=== PATIENT | male | born 1955 | race Caucasian/White ===

== ENCOUNTER → 2019-09-24 | Day surgery (SDC) | payer BC ==
[2019-09-21 11:17] VITALS: BMI 28.8
[~2019-09-24] MED LIST: Bupivacaine 0.25% HCL 30 ML VIAL ONE; Dexamethasone 20 MG/5 ML VIAL ONE; Fentanyl 100 MCG/2 ML VIAL ONE; HYDROmorphone 0.5 MG/0.5 ML SYRINGE ONE; Lidocaine 1% PF 5 ML VIAL ONE; Lidocaine 2% Jelly 5 ML TUBE ONE; Midazolam HCl 2 mg/2 ml Vial ONE; Ondansetron PF 4 MG/2 ML Vial ONE; PROPOFOL 200 MG/20 ML VIAL ONE; ePHEDrine/0.9% NaCl/PF SYRINGE 50 mg/10 ml ONE
[2019-09-24 06:57] LABS: #Basophils 0.1 thou/uL (0.0-0.2); #Eosinphils 0.1 thou/uL (0.0-0.7); #Lymphocytes 1.2 thou/uL (1.20-3.40); #Monocytes 0.8 thou/uL (0.11-0.59); #Neutrophils 3.7 thou/uL (1.40-6.50); %Eosinophils 1.9 % (0.0-10.0); %Lymphocytes 20.3 % (21.0-51.0); %Monocytes 13.2 % (0.0-10.0); %Neutrophils 63.5 % (42.0-75.0); Hemoglobin 14.8 g/dL (14.0-18.0); Mean Corpuscular HGB CONC 34.3 g/dL (32.0-36.0); Mean Corpuscular Hemoglobin 32.1 pg (27.0-31.0); Mean Corpuscular Volume 93.6 fL (78.0-98.0); Mean Platelet Volume 6.6 fL (7.4-10.4); Platelet Count 245 thou/uL (130-400); RBC Distribution Width 11.3 % (11.5-14.5); Red Blood Cell (RBC) Count 4.62 mill/uL (4.70-6.10); White Blood Cell (WBC) Count 5.8 thou/uL (4.8-10.8)
[2019-09-24 07:11] LABS: INR-International Normal Ratio 0.9; Prothrombin Time 12.4 SEC (12.0-14.7)
[2019-09-24 07:12] LABS: Anion Gap 12 mmol/L (10-20); BUN (Urea Nitrogen) 20 mg/dL (8.4-25.7); Calc. Creatinine Clearance 125 mL/min (70-130); Calcium 9.2 mg/dL (7.8-10.44); Carbon Dioxide 28 mmol/L (23-31); Chloride 101 mmol/L (98-107); Estimated GFR-MDRD 90; Glucose 100 mg/dL (80-115); PTT 33.1 SEC (22.9-36.1); Potassium 3.5 mmol/L (3.5-5.1); Sodium 137 mmol/L (136-145)
--- NOTE | 2019-09-24 09:36 | OP ---
DATE OF PROCEDURE: 09/24/2019 PREOPERATIVE DIAGNOSIS: Right hydrocele. Right hydrocelectomy. ANESTHETIC: General with local. ESTIMATED BLOOD LOSS: Less than 50. DRAINS PLACED: A 1 inch [place] drain. FINDINGS: Large right hydrocele and attenuated epididymis has been pulled out into the hydrocele sac, testicle otherwise appeared normal. DESCRIPTION OF PROCEDURE: After obtaining written and verbal consent from the patient, after receiving some IV antibiotics, he was taken to the operating suite. He was placed in a supine position on the treatment table. PlexiPulses were placed on his lower extremities and turned on. He was given a general anesthetic and oral obturator intubation. His scrotum was shaved and then sterilely prepped and draped. An incision was made along the median raphae in the dependent portion of the scrotum and taken into the right hemiscrotum and down onto the right hydrocele sac which was dissected out with the testicle in it from the scrotal incision. We removed as many of these layers as we could, leaving him with not a very thick hydrocele layer. The epididymis had pulled out into the hydrocele sac and this was noted visibly. We then opened up the sac on the region opposite to the testicle and drained a large amount of the fluid. We then went ahead and removed the sac leaving a rim of it around the testicle and epididymis being careful not to injure the attenuated epididymis. We then went ahead and oversewed this with a running 4-0 Vicryl stitch. We then irrigated out the incision and the specimen, obtained hemostasis with the electrocautery unit. The testicle was placed back into its normal position in the right scrotum. We did place 20 mL of 0.25% Marcaine into the scrotum and a 1 inch [place] drain was also placed. We closed the skin in two layers, first layer 2-0 chromic [id number] and the second layer 3-0 chromic U-stitches. We also infiltrated the skin incision itself with 20 mL of 0.25% Marcaine without epinephrine. Fluffs and wet panties were placed. The patient was awakened, extubated, and taken by stretcher to the recovery room. Sponge and needle counts were correct x2. Job ID: [id number]
--- NOTE | 2019-09-25 14:06 | EKG ---
Test Reason : PREOP Blood Pressure : / mmHG Vent. Rate : 069 BPM Atrial Rate : 069 BPM P-R Int : 172 ms QRS Dur : 098 ms QT Int : 416 ms P-R-T Axes : 017 -43 043 degrees QTc Int : 445 ms Normal sinus rhythm Left axis deviation Possible Inferior infarct , age undetermined Abnormal ECG When compared with ECG of 14-DEC-2009 14:58, No significant change was found Confirmed by ANN MARIE COLLINS, . SFabiola (4) on 09/25/2019 2:06:39 PM Referred By: TUAN Confirmed By:DR. Ariadna JESUS MD
== END ==
LOC: SDC 05:59
PROVIDERS: ATTEND Urology
PROC: 0VB60ZZ Excision of Right Tunica Vaginalis, Open Approach (ICD-10-PCS; principal; 2019-09-24)
DX: N43.3 Hydrocele, unspecified (principal); I10 Essential (primary) hypertension; E78.5 Hyperlipidemia, unspecified; Z79.82 Long term (current) use of aspirin; Z79.899 Other long term (current) drug therapy
CPT/HCPCS: 80048; 85025; 85610; 85730; 88302; 93005; 93010; J0690; J1100; J1170; J2001; J2250; J2405; J2704; J3010; S0020

== ENCOUNTER 2019-10-02 11:36 | Inpatient (IN) | payer BC ==
[2019-10-02] MEDS ORDERED: Morphine 4 MG/ML VIAL ONE ×2 (12:32→13:36)
[2019-10-02] MEDS ORDERED: Ondansetron PF 4 MG/2 ML Vial ONE (12:32)
[2019-10-02] MEDS ORDERED: cefTRIAXone\\ROCEPHIN 2 GM VIAL ONE ×2 (12:33→12:40)
[2019-10-02 12:34] LABS: #Lymphocytes 0.6 thou/uL (1.20-3.40); #Monocytes 1.7 thou/uL (0.11-0.59); #Neutrophils 9.9 thou/uL (1.40-6.50); %Basophils 0.2 % (0.0-1.0); %Eosinophils 0.2 % (0.0-10.0); %Lymphocytes 5.1 % (21.0-51.0); %Monocytes 14.1 % (0.0-10.0); %Neutrophils 80.5 % (42.0-75.0); Hemoglobin 11.8 g/dL (14.0-18.0); Mean Corpuscular HGB CONC 35.1 g/dL (32.0-36.0); Mean Corpuscular Hemoglobin 32.2 pg (27.0-31.0); Mean Corpuscular Volume 91.8 fL (78.0-98.0); Mean Platelet Volume 6.9 fL (7.4-10.4); Platelet Count 410 thou/uL (130-400); RBC Distribution Width 11.2 % (11.5-14.5); Red Blood Cell (RBC) Count 3.68 mill/uL (4.70-6.10); White Blood Cell (WBC) Count 12.4 thou/uL (4.8-10.8)
[2019-10-02 12:40] LABS: INR-International Normal Ratio 1.1; PTT 37.4 SEC (22.9-36.1); Prothrombin Time 13.7 SEC (12.0-14.7)
[2019-10-02] MEDS ORDERED: Vancomycin 1.5 GRAM/300 ML BAG 1.5 GM in Premix Bag 1 BAG IVPB SCH (12:45)
[2019-10-02 13:05] LABS: Anion Gap 14 mmol/L (10-20); Calc. Creatinine Clearance 0 mL/min (70-130); Calcium 9.4 mg/dL (7.8-10.44); Carbon Dioxide 25 mmol/L (23-31); Chloride 92 mmol/L (98-107); Estimated GFR-MDRD Greater than 90; Potassium 3.4 mmol/L (3.5-5.1); Sodium 128 mmol/L (136-145)
[2019-10-02 13:09] LABS: BUN (Urea Nitrogen) 12 mg/dL (8.4-25.7); Glucose 112 mg/dL (80-115)
[2019-10-02] MEDS ORDERED: Acetaminophen 325 MG TAB PO PRN (14:00)
[2019-10-02] MEDS ORDERED: Bisacodyl 10 MG SUPP PR PRN (14:00)
[2019-10-02] MEDS ORDERED: Senokot S 8.6-50 MG TAB PO PRN (14:00)
[2019-10-02] MEDS ORDERED: Guaifenesin DM 100-10/5 ML UDCUP PO PRN (14:00)
[2019-10-02] MEDS ORDERED: Ondansetron PF 4 MG/2 ML Vial IVP PRN (14:00)
--- NOTE | 2019-10-02 14:43 | HP ---
PRIMARY CARE PHYSICIAN: Dr. Max. REASON FOR ADMISSION: Scrotal abscess, sepsis. HISTORY OF PRESENTING ILLNESS: The patient gives history of having a large hydrocele, which he got operated on . Post this procedure, the patient has had progressive buildup of fluid. The patient also had a fever of 101.9 degrees. He went to see Dr. Leyva again this morning and has had another incision and drainage done there. He was asked to come get hospitalized in view of fever and possible infected scrotal sac. No complaints of chest pain, palpitation, PND, or orthopnea. No complaints of constipation at present. PAST MEDICAL AND SURGICAL HISTORY: History of cardiomyopathy, hypertension, history of a heart murmur, follows up with Dr. Vásquez. He has had a stress test done three months back and was told that he will be treated medically. He does not know the exact results of the test. He has had a cardiac catheterization done more than 18 years back, which was apparently normal as far as he knows, no cardiac stents in the past. Cholecystectomy; right hernia repair with a mesh, done 6 years back at [facility] by Dr. Aragon. Right leg and knee surgery with placement of plates, he has had right wrist surgery with placement of plates and screws, left elbow surgery with plates and screws, carpal tunnel surgery. CURRENT MEDICATIONS: The patient is on; 1. Aspirin 81 mg p.o. daily. 2. Nexium 40 mg p.o. daily. 3. Fluticasone nasal spray daily. 4. Lisinopril with hydrochlorothiazide 20/12.5 mg p.o. daily. 5. Toprol-XL 25 mg p.o. daily. 6. Viagra p.r.n. 7. Simvastatin 20 mg p.o. q.p.m. 8. Restoril 15 mg p.o. at bedtime p.r.n. for insomnia. ALLERGIES: NO KNOWN DRUG ALLERGIES. PERSONAL HISTORY: Does not abuse alcohol or drugs. No history of smoking. Lives with his . FAMILY HISTORY: Both parents are living. Mother is 85 and has history of coronary artery disease. Father is living and is 91 years old, he has multiple medical issues including coronary artery disease. CODE STATUS: Full. REVIEW OF SYSTEMS: CONSTITUTIONAL: Negative for weight loss or gain, ability to conduct usual activities. SKIN: Negative for rash, itching. EYES: Negative for double vision, pain. ENT/MOUTH: Negative for nose bleeding, neck stiffness, pain, tenderness. CARDIOVASCULAR: Negative for palpitations, dyspnea on exertion, orthopnea. RESPIRATORY: Negative for shortness of breath, wheezing, cough, hemoptysis, fever or night sweats. GASTROINTESTINAL: Negative for poor appetite, abdominal pain, heartburn, nausea , vomiting, constipation, or diarrhea. GENITOURINARY: Negative for urgency, frequency, dysuria, nocturia. MUSCULOSKELETAL: Negative for pain, swelling. NEUROLOGIC/PSYCHIATRIC: Negative for anxiety, depression. ALLERGY/IMMUNOLOGIC: Negative for skin rash, bleeding tendency. PHYSICAL EXAMINATION: GENERAL: The patient is a 63-year-old male, who is currently in mild distress from scrotal pain. VITAL SIGNS: Blood pressure 116/76, pulse 84 per minute, respiratory rate 16 per minute, temperature 99.9 degrees Fahrenheit, saturating 100% on room air. NECK: Supple. No elevated JVD. HEENT: Eyes; extraocular muscles are intact. Pupils are reacting to light. Oral cavity, mucous membranes are dry. No exudates or congestion. CARDIOVASCULAR SYSTEM: S1 and S2 heard, regular rhythm. RESPIRATORY SYSTEM: Air entry 1+ bilateral. No rales or rhonchi. ABDOMEN: Soft. Bowel sounds heard. No tenderness, rigidity, or guarding. The patient has ecchymosis in the suprapubic and scrotal area. His scrotum is enlarged and erythematous. He has had incision and drainage with complete packing done on the inferior part of the scrotal sac. Ecchymoses extends to the medial thigh on the right side. EXTREMITIES: No peripheral edema or calf tenderness. VASCULAR SYSTEM: Peripheral pulses 2+ bilateral. No ischemic ulcerations or gangrene. CENTRAL NERVOUS SYSTEM: No gross focal deficits noted. The patient is alert, awake, oriented well. PSYCHIATRIC SYSTEM: The patient's mood is euthymic. No hallucinations or delusions. LABORATORY DATA: White count of 12, hemoglobin and hematocrit are 11 and 33, platelet count 410, MCV is 91 with 80% neutrophils. PT/INR within normal limits. PTT 37. Sodium 128, potassium 3.4, serum chloride 92, bicarb is 25, BUN 12, creatinine 0.7, lactic acid 1.0, and serum glucose 112. CLINICAL IMPRESSION AND PLAN: The patient will be admitted to Med/Surg floor for suspected scrotal abscess with recent surgery for hydrocele on the . Dr. Leyva, his urologist will be consulted. Blood cultures have been obtained in the ER. We will also obtain a urine culture. He will be on cefepime and vancomycin. Normal saline at 60 mL/hour for a total of 2 bags. We will obtain a metabolic panel in the morning and see the trend of his sodium. We will continue aspirin, Nexium, lisinopril with hydrochlorothiazide, Toprol-XL, simvastatin, and temazepam as before. Morphine and [place] p.r.n. for pain. We will continue to closely monitor him on Med/Surg floor. Wound Care consultation will be requested as well. The patient says Dr. Leyva is planning to put his wound in a wound VAC. Job ID: [id number] [facility]
[2019-10-02] MEDS ORDERED: Cefepime 1 GM in Sodium Chloride 0.9% 100 ML IVPB SCH (15:00)
--- NOTE | 2019-10-02 16:14 | CON ---
DATE OF CONSULTATION: 10/02/2019 HISTORY OF PRESENT ILLNESS: This is a 63-year-old white male, who on the September 24, underwent a right scrotal hydrocelectomy. He came to see me in my office today. He said he came in to get the drain removed. Still having a lot of pain. He said he is still having some drainage, had a fever yesterday. Examining him, he has a large right-sided hematoma. There is no cellulitis. There is quite a bit of tenderness. There is a lot of ecchymosis of the scrotal sac and extending subcutaneously up to both inguinal canals. I went ahead and released three of the sutures as he did have some odor present from the incision. Cultured drainage and then removed a large amount of clot. There was no abdiel pus noted, but as mentioned, cultures were done. It was both still a semisolid as well as liquified hematoma. Irrigated out with sterile water in my office and then, damp to dry dressing change placed. We tried to get him directly admitted to the hospital, there were no beds. So, we sent him through the ER and I saw him again in the ER. The hematoma was not reaccumulated. His hemoglobin is over 11. His white count was mildly elevated at 12. He appears to not at this point, be toxic. His vital signs appear to be stable. He is still having a great deal of discomfort and has received some IV morphine for it. He is being started on some vancomycin and Rocephin. It appears that the emergency room nurses have picked up his wound culture that I had sent with him and his from my office and that has been set up. PAST MEDICAL HISTORY: His medical history includes some hypertension. He has had a prior hydrocelectomy on the opposite side. PHYSICAL EXAMINATION: ABDOMEN: Soft and nontender. There is ecchymosis as mentioned. The scrotum is much less swollen after removing the hematoma. There is some drainage of some thin bloody fluid from it onto his diaper. EXTREMITIES: His calves are nontender. IMPRESSION: 1. Right-sided scrotal hematoma. 2. Possibly infected hematoma. PLAN: Plan at this point is for admission, IV antibiotics, he can eat and drink. Pain control and we will get Wound Care to see him hopefully for a wound VAC. This has been fully discussed with him and his . Job ID: [id number]
[2019-10-02] MEDS: Morphine 2 MG/ML SYRINGE SLOW IVP PRN ×2 (17:33→21:33)
[2019-10-02] MEDS: Sodium Chloride 0.9% 1,000 ML IV SCH (17:36)
[2019-10-02 17:56] VITALS: BMI 27.1
[2019-10-02] MEDS: HYDROcodone/Acetaminophen 5/325 mg Tablet PO PRN (18:29)
[2019-10-02] MEDS: Atorvastatin Calcium 10 MG TAB PO SCH (21:35)
[2019-10-02] MEDS: Cefepime 1 GM in Sodium Chloride 0.9% 100 ML IVPB SCH (21:35)
[2019-10-02] MEDS: Temazepam 15 MG CAP PO PRN (23:41)
[2019-10-03] MEDS: Vancomycin 1.5 GRAM/300 ML BAG 1.5 GM in Premix Bag 1 BAG IVPB SCH ×2 (02:31→13:20)
[2019-10-03] MEDS ORDERED: HYDROcodone/Acetaminophen 5/325 mg Tablet ONE (05:06)
[2019-10-03] MEDS ORDERED: Morphine 2 MG/ML SYRINGE ONE (07:05)
[2019-10-03] MEDS: Enoxaparin Sodium 40 MG/0.4 ML SYRINGE SC SCH (08:54)
[2019-10-03] MEDS ORDERED: FLU VACC QS2019-20(6MOS UP)/PF 60 MCG/0.5 ML SYRINGE IM ONE (09:00)
[2019-10-03] MEDS: Cefepime 1 GM in Sodium Chloride 0.9% 100 ML IVPB SCH ×2 (10:44→20:16)
[2019-10-03] MEDS: Lisinopril/Hydrochlorothiazide 20 mg/12.5 mg Tablet PO SCH (10:45)
[2019-10-03] MEDS: HYDROcodone/Acetaminophen 5/325 mg Tablet PO PRN ×2 (11:11→19:06)
[2019-10-03] MEDS: Sodium Chloride 0.9% 1,000 ML IV SCH (12:12)
[2019-10-03] MEDS: Aspirin 81 mg Enteric Coated Tablet PO SCH (12:57)
[2019-10-03] MEDS: Morphine 2 MG/ML SYRINGE SLOW IVP PRN ×2 (13:23→17:15)
[2019-10-03 13:41] LABS: Hemoglobin 9.3 g/dL (14.0-18.0); Mean Corpuscular Hemoglobin 32.2 pg (27.0-31.0); Mean Corpuscular Volume 94.8 fL (78.0-98.0); Mean Platelet Volume 6.6 fL (7.4-10.4); Platelet Count 337 thou/uL (130-400); RBC Distribution Width 11.3 % (11.5-14.5); Red Blood Cell (RBC) Count 2.89 mill/uL (4.70-6.10); White Blood Cell (WBC) Count 7.1 thou/uL (4.8-10.8)
[2019-10-03 13:57] LABS: Band 4 % (5-11); Eosinophils 1 % (0-10); Lymphocytes 7 % (21-51); MDiff Complete? YES; Monocytes 16 % (0-10); Neutrophil 70 % (42-75); Platelet Morphology Comment Appears Adequate; Polychromasia SLIGHT = 2-3 cells (100X) (0-2/hpf); Reactive Lymphocytes 2 % (0-10)
[2019-10-03 18:55] LABS: Anion Gap 10 mmol/L (10-20); BUN (Urea Nitrogen) 8 mg/dL (8.4-25.7); Calc. Creatinine Clearance 163 mL/min (70-130); Calcium 8.3 mg/dL (7.8-10.44); Carbon Dioxide 26 mmol/L (23-31); Chloride 99 mmol/L (98-107); Estimated GFR-MDRD Greater than 90; Glucose 88 mg/dL (80-115); Potassium 3.3 mmol/L (3.5-5.1); Sodium 132 mmol/L (136-145)
--- NOTE | 2019-10-03 20:10 | PDOC.HOSPP ---
- Subjective Subjective: Doing ok. Has had a little discomfort. Says he had a herniorraphy with Dr. Aragon 8 years ago. He had some slowly progressing swelling in the right groin area where he had the surgery. He relates that to the hydrocele. - Objective Vital Signs & Weight: Vital Signs (12 hours) Temp Pulse Resp BP BP Pulse Ox 10/03/19 20:04 99.0 F 67 19 141/81 H 96 10/03/19 15:57 98.1 F 104 H 17 133/65 98 10/03/19 10:45 75 135/76 Weight Admit Weight 211 lb 2 oz Weight 211 lb 2 oz I&O: 10/02/19 10/03/19 10/04/19 06:59 06:59 06:59 Intake Total 1730 Output Total 1700 Balance 30 Result Diagrams: 10/03/19 06:40 10/03/19 07:13 Additional Labs: Accuchecks 10/03/19 05:09 POC Glucose 112 H Hospitalist ROS - Medication Medications: Active Medications Generic Name Dose Route Start Last Admin Trade Name Freq PRN Reason Stop Dose Admin Hydrocodone Bitart/Acetaminophen 1 tab 10/02/19 14:00 10/03/19 19:06 [place] 5/325 PO 1 tab Q4H PRN Administration Moderate Pain (4-6) Aspirin 81 mg 10/03/19 09:00 10/03/19 12:57 Ecotrin PO Not Given DAILY SAAD Atorvastatin Calcium 10 mg 10/02/19 21:00 10/02/19 21:35 Lipitor PO 10 mg HS SAAD Administration Enoxaparin Sodium 40 mg 10/03/19 09:00 10/03/19 08:54 Lovenox SC 40 mg 0900 SAAD Administration Lisinopril/HCTZ 1 tab 10/03/19 09:00 10/03/19 10:45 Prinizide 20-12.5 PO 1 tab DAILY SAAD Administration Sodium Chloride 1,000 mls @ 60 mls/hr 10/02/19 14:00 10/03/19 12:12 Normal Saline 0.9% IV 10/03/19 23:19 1,000 mls .[id number] SAAD Administration Vancomycin HCl 1.5 gm/ Device 300 mls @ 200 mls/hr 10/03/19 02:00 10/03/19 13 :20 IVPB 300 mls 0200,1400 SAAD Administration Cefepime HCl 1 gm/ Sodium 100 mls @ 200 mls/hr 10/02/19 21:00 10/03/19 10:44 Chloride IVPB 100 mls 0900,2100 SAAD Administration Metoprolol Succinate 25 mg 10/03/19 09:00 10/03/19 08:54 Toprol Xl PO 25 mg DAILY SAAD Administration Morphine Sulfate 2 mg 10/02/19 14:00 10/03/19 17:15 Morphine SLOW IVP 2 mg Q4H PRN Administration Pain Pantoprazole Sodium 40 mg 10/03/19 09:00 10/03/19 08:45 Protonix PO 40 mg DAILY SAAD Administration Temazepam 15 mg 10/02/19 14:00 10/02/19 23:41 Restoril PO 15 mg HSPRN PRN Administration Insomnia - Exam General Appearance: NAD Heart: RRR, no murmur, no gallops, no rubs, normal peripheral pulses Respiratory: CTAB, no wheezes, no rales, no ronchi, normal chest expansion, no tachypnea, normal percussion Gastrointestinal: soft, non-tender, non-distended, normal bowel sounds, no palpable masses, no hepatomegaly, no splenomegaly, no bruit Extremities: no cyanosis, no clubbing, no edema Skin - other findings: Ecchym of scrotum, wound vac on scrotum. Ecchym of lower pelvis. Hosp A/P (1) Scrotal abscess Code(s): N49.2 - INFLAMMATORY DISORDERS OF SCROTUM Status: Acute (2) HTN (hypertension) Code(s): I10 - ESSENTIAL (PRIMARY) HYPERTENSION Status: Acute (3) HLD (hyperlipidemia) Code(s): E78.5 - HYPERLIPIDEMIA, UNSPECIFIED Status: Acute - Plan Post-op scrotal abscess drainage. Continue IV abx. Follow up cultures. Continue home meds.
[2019-10-03] MEDS: Atorvastatin Calcium 10 MG TAB PO SCH (20:16)
[2019-10-03] MEDS: Temazepam 15 MG CAP PO PRN (23:02)
[2019-10-04 01:31] LABS: Vancomycin, Trough 7.9 ug/mL
[2019-10-04] MEDS: Vancomycin 1.5 GRAM/300 ML BAG 1.5 GM in Premix Bag 1 BAG IVPB SCH (01:59)
[2019-10-04] MEDS: Morphine 2 MG/ML SYRINGE SLOW IVP PRN ×4 (02:02→15:22)
[2019-10-04] MEDS ORDERED: Potassium Chloride 20 MEQ TAB PO SCH (07:45)
[2019-10-04] MEDS: HYDROcodone/Acetaminophen 5/325 mg Tablet PO PRN ×3 (08:06→20:00)
[2019-10-04] MEDS: Enoxaparin Sodium 40 MG/0.4 ML SYRINGE SC SCH (08:07)
[2019-10-04] MEDS: Cefepime 1 GM in Sodium Chloride 0.9% 100 ML IVPB SCH (08:07)
[2019-10-04] MEDS: Aspirin 81 mg Enteric Coated Tablet PO SCH (08:08)
[2019-10-04] MEDS: Lisinopril/Hydrochlorothiazide 20 mg/12.5 mg Tablet PO SCH (09:07)
[2019-10-04] MEDS ORDERED: Vancomycin HCl 1.5 GM in Sodium Chloride 0.9% 250 ML 300 ML IVPB SCH (10:00)
--- NOTE | 2019-10-04 16:50 | PDOC.HOSPP ---
- Subjective Subjective: Feeling better except for a little pain. No other complaints. - Objective Vital Signs & Weight: Vital Signs (12 hours) Temp Pulse Resp BP BP Pulse Ox 10/04/19 09:07 68 161/86 H 10/04/19 08:00 98 10/04/19 07:47 99.4 F 68 18 161/86 H 97 Weight Admit Weight 211 lb 2 oz Weight 211 lb 2 oz I&O: 10/03/19 10/04/19 10/05/19 06:59 06:59 06:59 Intake Total 2690 Output Total 2875 Balance -185 Result Diagrams: 10/03/19 06:40 10/03/19 07:13 Hospitalist ROS - Medication Medications: Active Medications Generic Name Dose Route Start Last Admin Trade Name Freq PRN Reason Stop Dose Admin Hydrocodone Bitart/Acetaminophen 1 tab 10/02/19 14:00 10/04/19 15:17 [place] 5/325 PO 1 tab Q4H PRN Administration Moderate Pain (4-6) Aspirin 81 mg 10/03/19 09:00 10/04/19 08:08 Ecotrin PO Not Given DAILY SAAD Atorvastatin Calcium 10 mg 10/02/19 21:00 10/03/19 20:16 Lipitor PO 10 mg HS SAAD Administration Enoxaparin Sodium 40 mg 10/03/19 09:00 10/04/19 08:07 Lovenox SC 40 mg 0900 SAAD Administration Lisinopril/HCTZ 1 tab 10/03/19 09:00 10/04/19 09:07 Prinizide 20-12.5 PO 1 tab DAILY SAAD Administration Cefepime HCl 1 gm/ Sodium 100 mls @ 200 mls/hr 10/02/19 21:00 10/04/19 08:07 Chloride IVPB 100 mls 0900,2100 SAAD Administration Vancomycin HCl 1.5 gm/ Sodium 300 mls @ 200 mls/hr 10/04/19 10:00 10/04/19 10 :25 Chloride IVPB 300 mls 0200,1000,1800 SAAD Administration Metoprolol Succinate 25 mg 10/03/19 09:00 10/04/19 08:06 Toprol Xl PO 25 mg DAILY SAAD Administration Morphine Sulfate 2 mg 10/02/19 14:00 10/04/19 15:22 Morphine SLOW IVP 2 mg Q4H PRN Administration Pain Pantoprazole Sodium 40 mg 10/03/19 09:00 10/04/19 08:06 Protonix PO 40 mg DAILY SAAD Administration Sodium Chloride 10 ml 10/04/19 09:00 10/04/19 10:28 Flush - Normal Saline IVF 10 ml Q12HR SAAD Administration Temazepam 15 mg 10/02/19 14:00 10/03/19 23:02 Restoril PO 15 mg HSPRN PRN Administration Insomnia - Exam General Appearance: NAD, awake alert Heart: RRR, no gallops, no rubs, normal peripheral pulses, II/IV Respiratory: CTAB, no wheezes, no rales, no ronchi, normal chest expansion, no tachypnea, normal percussion Gastrointestinal: soft, non-tender, non-distended, normal bowel sounds, no palpable masses, no hepatomegaly, no splenomegaly, no bruit Extremities: no cyanosis, no clubbing, no edema Skin - other findings: Scrotal swelling slightly better. Persistent ecchymosis. Musculoskeletal: normal tone, normal strength, no muscle wasting Psychiatric: normal affect, normal behavior, A&O x 3 Hosp A/P (1) Scrotal abscess Code(s): N49.2 - INFLAMMATORY DISORDERS OF SCROTUM Status: Acute (2) HTN (hypertension) Code(s): I10 - ESSENTIAL (PRIMARY) HYPERTENSION Status: Acute (3) HLD (hyperlipidemia) Code(s): E78.5 - HYPERLIPIDEMIA, UNSPECIFIED Status: Acute (4) Cardiomyopathy Code(s): I42.9 - CARDIOMYOPATHY, UNSPECIFIED Status: Acute - Plan Had hydrocelectomy previously. Post-procedure hematoma with development of scrotal abscess. Post-op scrotal abscess drainage. Continue IV abx. Polymicrobial culture. E coli, Enterococcus and Klebsiella ID consult. Continue wound vac. Continue home meds. BP ok.
[2019-10-04] MEDS: Piperacillin/Tazobactam 3.375 GM in Sodium Chloride 0.9% 100 ML IVPB SCH (17:39)
--- NOTE | 2019-10-04 17:56 | PQF ---
AFUA SHEEHAN DAVID R MD [id number] CLINICAL DOCUMENTATION IMPROVEMENT CLARIFICATION FORM: ICD-10 Updated PLEASE DO AN ADDENDUM TO THE PROGRESS NOTE WITH ANY DOCUMENTATION UPDATES OR ADDITIONS AND CARRY THROUGH TO DC SUMMARY. THANK YOU. DATE: 10/04/19 ATTN: Suman Please exercise your independent, professional judgment in responding to the clarification form. 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 of Inappropriate Secretion of Antidiuretic Hormone) [ ] Other diagnosis [ ] Unable to determine In addition, please specify: Present on Admission (POA): [x ] Yes [ ] No [ ] Unable to determine CLINICAL INDICATORS - SIGNS / SYMPTOMS / LABS / RESULTS AND LOCATION IN EMR Na level --> 10/02 na 128; 10/03 na 132 per lab RISK FACTORS / RESULTS AND LOCATION IN EMR H&P 10/02 Jag: scrotal abscesses TREATMENTS / RESULTS AND LOCATION IN EMR IV fluids--> 10/02 ED: 1 liter NS bolus then NS at 60 10/02-10/03 per orders Daily electrolyte labs 10/02 labs (This form is maintained as a part of the permanent medical record) 2014 [employer], [employer]. All Rights Reserved Maribel Molina RN, BSN, CCDS [email or web address] [email or web address]
[2019-10-04] MEDS: Atorvastatin Calcium 10 MG TAB PO SCH (20:00)
[2019-10-04] MEDS: Temazepam 15 MG CAP PO PRN (22:36)
--- NOTE | 2019-10-04 23:57 | CON ---
DATE OF CONSULTATION: 10/04/2019 REASON FOR CONSULTATION: Scrotal wound infection. HISTORY OF PRESENT ILLNESS: A 63-year-old patient, history of heart murmur, hypertension, and hydrocele which was evacuated by Dr. Leyva and postoperatively a few days later the patient developed inflammatory process and was admitted. He is currently on IV antimicrobial therapy, feeling better, still with moderate pain when he ambulates. No headaches. No visual symptoms, sore throat, odynophagia, dysphagia. No cough or sputum production. No chest pain. No back pain. No abdominal pain. No joint symptoms or neurological symptoms. PAST SURGICAL HISTORY: Includes hydrocele surgery. SOCIAL HISTORY: Retired from [employer]. He never smoked. Used to drink when he was younger, but not any more. ALLERGIES: NONE. FAMILY HISTORY: Noncontributory. CURRENT MEDICATIONS: P.r.n. medications plus vancomycin and cefepime. PHYSICAL EXAMINATION: VITAL SIGNS: T-max 99.4, blood pressure 160/80, pulse 68, respirations 18, O2 saturation 98%. GENERAL: Appears in no distress. SKIN: The patient has a negative pressure dressing in the scrotal tissue in the midline, posterior aspect. Peripheral IV access, voiding in the toilet. No lymphadenopathy. HEENT: Noncontributory. Numerous [place] teeth with a little bit of gum disease. NECK: Supple. No jugular venous distention or carotid bruits. LUNGS: Clear to auscultation and percussion. HEART: S1 and S2, regular rate. ABDOMEN: Soft, not distended or tender. The scrotum is moderately swollen, mildly tender. EXTREMITIES: No joint inflammatory activity. Moves extremities equally. No edema. Pulses 1+ in dorsalis pedis. NEUROLOGIC: Cognitive function appears to be intact. LABORATORY DATA: Sodium 128 and 132, creatinine 0.62. Lactic acid 1.0. White cell count is 12.4 and down to 7.1, hemoglobin down to 9.3, MCV 94, platelets 337, 70 % neutrophils, 4% bands. Vancomycin trough 7.9. The scrotum culture with E coli , E faecalis, Morganella morganii. The Morganella is resistant to ampicillin and cefoxitin. Otherwise, they are all fairly sensitive pathogens. ASSESSMENT: History of hydrocele surgery, now with wound infection with a polymicrobial seda. We will switch the patient to Zosyn and then for discharge planning would recommend Augmentin or amoxicillin 500 three times a day plus ciprofloxacin 500 mg b.i.d. anywhere from 10-14 days. Job ID: [id number] [facility]
[2019-10-05] MEDS: Piperacillin/Tazobactam 3.375 GM in Sodium Chloride 0.9% 100 ML IVPB SCH ×3 (00:33→12:19)
[2019-10-05] MEDS: HYDROcodone/Acetaminophen 5/325 mg Tablet PO PRN ×4 (00:40→14:25)
[2019-10-05 08:16] VITALS: BP 151/84; TEMP 98.2
[2019-10-05] MEDS: Enoxaparin Sodium 40 MG/0.4 ML SYRINGE SC SCH (08:51)
[2019-10-05] MEDS: Lisinopril/Hydrochlorothiazide 20 mg/12.5 mg Tablet PO SCH (08:53)
[2019-10-05] MEDS: Aspirin 81 mg Enteric Coated Tablet PO SCH (09:08)
[2019-10-05] MEDS: Morphine 2 MG/ML SYRINGE SLOW IVP PRN ×2 (10:14→14:25)
--- NOTE | 2019-10-05 12:33 | PRG ---
DATE OF SERVICE: 10/05/2019 The patient continues to do well. He does not have a fever. His vital signs are stable. He is eating and drinking okay. Urinating okay. His tenderness and discomfort are much improved. He has a wound VAC in place. It was changed yesterday. There is a good chance to get out of here today. Dr. Wilburn saw him and switched him to Zosyn and wants him to go home on Augmentin or amoxicillin and Cipro for the multiple bacteria that were growing in his culture. I think that is all reasonable. I will be set up to see him in my office not next week, but the following week. From my standpoint, he is fine to go home. His exam today, his calves are nontender. The scrotum is not significantly tender anymore. There is no sign of any significant cellulitis. The ecchymosis is improving and the swelling has continued to recede. I will sign off on him at this point. Job ID: [id number]
--- NOTE | 2019-10-06 04:00 | PQF ---
AFUA SHEEHAN DAVID R MD [id number] CLINICAL DOCUMENTATION CLARIFICATION FORM: POST DISCHARGE Addendum to original discharge summary date: ____ Late entry note date: __ DATE: 10/06/19 ATTN: Kris Will Please exercise your independent, professional judgment in responding to the clarification form. Clinical indicators are provided on the bottom of this form for your review Please check appropriate box(s) to clarify if the following diagnosis has been ruled in or ruled out: SEPSIS [ ] Ruled in diagnosis [ ] Continue to treat [ ] Resolved [x ] Ruled out diagnosis H & P does NOT indicate "sepsis". [ ] Cannot rule out diagnosis [ ] Other diagnosis [ ] Unable to determine In addition, please specify: Present on Admission (POA): [ ] Yes [ ] No [ ] Unable to determine For continuity of documentation, please document condition throughout progress notes and discharge summary. Thank You. CLINICAL INDICATORS - SIGNS / SYMPTOMS / LABS HP 10/02 "Sepsis" ED 10/02 "Reports fever 3 days ago with max temp 101.9" HP 10/02 "hx of large hydrocele which he got operated on " Consult 10/04 "scrotal wound infection" PN 10/04 "microbial culture:E.coli, enterococcus and klebsilla" RISK FACTORS ED 10/02-63 years old HP 10/02-scrotal abscess HP 10/02-s/p hydrocele surgery TREATMENTS 10/02-Blood culture and wound culture MAR 10/02-Rocephin 2gm IV JAN 09-Vancomycin 1.5gram IV JAN 09-IVF (This form is maintained as a part of the permanent medical record) 2014 [employer], [employer]. All Rights Reserved [email or web address] [not provided] [email or web address]
--- NOTE | 2019-10-06 09:22 | DIS ---
DATE OF ADMISSION: 10/02/2019 DATE OF DISCHARGE: 10/05/2019 FINAL DIAGNOSES AT THE TIME OF DISCHARGE: 1. Scrotal abscess. 2. Hypertension. 3. Hyperlipidemia. 4. Cardiomyopathy. CONSULTANTS: 1. Dr. Leyva, Urology Service. 2. Dr. Wilburn, Infectious Disease Service. HOSPITAL COURSE: The patient was a 63-year-old male, who had large hydrocele which he got operated on the 22 of September and postprocedure he had progressive buildup of fluids in the area associated with some temperature up to 101.9. He went to see Dr. Leyva, his urologist and he has had an other incision and drainage done there. He was asked to come to the hospital in view of fever and possible infected scrotal sac. At the time of emergency room visit, his white count was 12, hemoglobin and hematocrit 11 and 33 respectively, platelet count 410. He had 80% of neutrophils. Sodium was 128, potassium 3.4, chloride 92, bicarb 25, BUN 12, creatinine 0.7. Lactic acid 1. Serum glucose 112. He got admitted to medical-surgical floor. He was started on vancomycin and cefepime. He received IV fluids. He was seen by Dr. Dr. Leyva for Urology consultation who requested wound VAC. This was arranged by the Wound Care team. He is doing well. Dr. Leyva cleared him for discharge home. His temperature is down to 98.2, his respirations 64, blood pressure 151/84, pulse oximetry 96% on room air. His microbiology showed specimen from incision growing E coli, Enterococcus faecalis and Morganella morganii. The patient was seen by Dr. Wilburn, who recommends to continue the regimen and treatment for approximately 2 weeks with Cipro and Augmentin after the discharge from the hospital. He is placed on both antibiotics and prescriptions were sent to the pharmacy of choice along with prescription which is written for tramadol 2 tablets every 6 hours p.r.n. as needed. MEDICATIONS: His other medications at the time of discharge 1. Fluticasone one spray to each nostril daily. 2. Lisinopril and hydrochlorothiazide 20/12.5 mg daily. 3. Metoprolol 25 mg daily. 4. Simvastatin 20 mg q.p.m. 5. Nexium 40 mg once a day. 6. Sildenafil 20 mg as needed. 7. Temazepam 1 tablet p.r.n. as needed. He is in good condition. He is going to stay on low salt diet. Activities as tolerated. He is going to be discharged with home health and for wound care and visits. Wound VAC is going to be continued. This was arranged through the agency and he is going to call Dr. Leyva's office and to follow up with him in the next few days. Job ID: [id number]
--- NOTE | 2019-10-07 18:16 | PQF ---
AFUA SHEEHAN DAVID R MD [id number] CLINICAL DOCUMENTATION CLARIFICATION FORM: POST DISCHARGE Addendum to original discharge summary date: ____ Late entry note date: __ DATE: 10/07/19 ATTN: Kris Will Please exercise your independent, professional judgment in responding to the clarification form. Clinical indicators are provided on the bottom of this form for your review Please check appropriate box(s): [ ] Scrotal abscess as a complication of recent surgery [ ] Scrotal abscess not a complication of recent surgery [ ] Other diagnosis [ ] Unable to determine Defer to Dr. Leyva. CLINICAL INDICATORS - SIGNS / SYMPTOMS / LABS ED 10/02 "Reports fever 3 days ago with max temp 101.9" HP 10/02 "hx of large hydrocele which he got operated on " Consult 10/04 "scrotal wound infection" PN 10/04 "microbial culture:E.coli, enterococcus and klebsilla" DS 10/05 Had a large hydrocele which he got operated on the 22 of September DS 10/05 had an other incision and drainage done there DS 10/05 possible infected scrotal sac DS 10/05 specimen from incision growing e.coli,enterococcus faecalis and morganella morganii RISK FACTORS ED 10/02-63 years old HP 10/02-scrotal abscess HP 10/02-s/p hydrocele surgery TREATMENT: HP 10/02-Blood culture and wound culture MAR 10/02-Rocephin 2gm IV MAR 10/02-Vancomycin 1.5gram IV MAR 10/02-IVF (This form is maintained as a part of the permanent medical record) 2014 [employer] All Rights Reserved [email or web address] [not provided] [email or web address]
== END 2019-10-05 14:50 | disposition home or self-care (01) | DRG 728 ==
LOC: ERS 11:36 → T4-B 17:18
PROVIDERS: ADMIT Internal Medicine; ATTEND Internal Medicine
DX: N49.2 Inflammatory disorders of scrotum (principal); I42.9 Cardiomyopathy, unspecified; E87.1 Hypo-osmolality and hyponatremia; I10 Essential (primary) hypertension; S30.22XA Contusion of scrotum and testes, initial encounter; B96.20 Unspecified Escherichia coli [E. coli] as the cause of diseases classified elsewhere; B95.2 Enterococcus as the cause of diseases classified elsewhere; B96.1 Klebsiella pneumoniae [K. pneumoniae] as the cause of diseases classified elsewhere; E78.5 Hyperlipidemia, unspecified; Z23 Encounter for immunization; Z98.61 Coronary angioplasty status; Z90.49 Acquired absence of other specified parts of digestive tract; Z79.51 Long term (current) use of inhaled steroids; Z79.82 Long term (current) use of aspirin; Z79.899 Other long term (current) drug therapy
CPT/HCPCS: 36415; 36416; 80048; 80202; 83605; 85025; 85610; 85730; 87040; 87070; 87077; 87086; 87186; 87205; 96361; 96365; 96367; 96375; 96376; J0692; J0696; J1650; J2270; J2405; J2543; J3370; J3490; J7050

== ENCOUNTER 2024-06-21 14:58 | Inpatient (IN) | payer MEDICARE ==
[2024-06-21 16:49] LABS: #Basophils Less than 0.03 10x3/uL (0.0-0.2); #Eosinphils Less than 0.03 10x3/uL (0.0-0.7); %Basophils 0.1 % (0.0-1.0); %Eosinophils 0.1 % (0.0-10.0); %Lymphocytes 3.5 % (21.0-51.0); %Monocytes 4.5 % (0.0-10.0); %Neutrophils 91.3 % (42.0-75.0); Hematocrit 40.2 % (42.0-52.0); Hemoglobin 13.6 g/dL (14.0-18.0); Mean Corpuscular HGB CONC 33.8 g/dL (32.0-36.0); Mean Corpuscular Hemoglobin 29.9 pg (27.0-31.0); Mean Corpuscular Volume 88.4 fL (78.0-98.0); Mean Platelet Volume 9.8 fL (7.4-10.4); Platelet Count 234 10x3/uL (130-400); RBC Distribution Width 13.7 % (11.5-14.5); Red Blood Cell (RBC) Count 4.55 mill/uL (4.70-6.10)
[2024-06-21 17:03] LABS: Lipase 22 U/L (8-78)
[2024-06-21 17:04] LABS: ALT (SGPT) 18 U/L (8-55); AST (SGOT) 26 U/L (5-34); Albumin 4.1 g/dL (3.4-4.8); Alkaline Phosphatase 51 U/L (40-110); Anion Gap 18 mmol/L (10-20); BUN (Urea Nitrogen) 14 mg/dL (8.4-25.7); Bilirubin, Total 0.7 mg/dL (0.2-1.2); CK (CPK) 111 U/L (30-200); Calc. Creatinine Clearance 0 mL/min (70-130); Calcium 9.5 mg/dL (7.8-10.44); Carbon Dioxide 21 mmol/L (23-31); Chloride 107 mmol/L (98-107); Estimated GFR 82; Globulin 3.2 g/dL (2.4-3.5); Glucose 97 mg/dL (80-115); Potassium 3.6 mmol/L (3.5-5.1); Protein, Total 7.3 g/dL (5.8-8.1); Sodium 142 mmol/L (136-145)
[2024-06-21 17:06] LABS: Acetaminophen Less than 10 mcg/mL (Less than 10); Alcohol Less than 10.0 mg/dL (Less than 10); Salicylate 19.2 mg/dL (Less than 8.0)
[2024-06-21 17:08] LABS: Troponin I 0.024 ng/mL (< 0.028)
[2024-06-21 18:11] LABS: Bacteria/HPF None Seen HPF (None Seen); Bilirubin Negative (Negative); Blood, Urine Negative (Negative); CAUTI Indications for Culture Acute Hematuria; Glucose, Urine (Dipstick) Normal (Negative); Ketone, Urine 20 mg/dL (Negative); Leukocyte Negative Leu/uL (Negative); Nitrite Negative (Negative); Protein, Urine (Dipstick) 20 mg/dL (Neg-Trace); RBC/HPF 0-3 HPF (0-3); Specific Gravity, Urine 1.012 (1.002-1.036); Squamous Epithelial None Seen HPF (0-3); Urobilinogen Normal mg/dL (Less than 2); WBC/HPF 0-3 HPF (0-3)
[2024-06-21 18:14] LABS: Amphetamine Not Detected (NotDetected); Barbiturates Screen Not Detected (NotDetected); Benzodiazepine Screen Not Detected (NotDetected); Cocaine Metabolite Screen Not Detected (NotDetected); Methadone Not Detected (NotDetected); Methamphetamine Not Detected (NotDetected); Opiate Screen Not Detected (NotDetected); Oxycodone Screen Not Detected (NotDetected); Phencyclidine (PCP) Not Detected (NotDetected); THC/Cannabinoid Screen Not Detected (NotDetected); Tricyclic Screen Not Detected (NotDetected)
[2024-06-21 18:15] LABS: Clarity Hazy (Clear)
[2024-06-21 18:16] LABS: Urine Culture Reflex No No
[2024-06-21 20:44] VITALS: BMI 29.2
[2024-06-21] MEDS ORDERED: Acetaminophen 325 MG TAB PO PRN (20:47)
[2024-06-21] MEDS ORDERED: traMADol HCl 50 MG TAB PO PRN (20:47)
[2024-06-21] MEDS ORDERED: Bisacodyl 5 MG TAB PO PRN (20:47)
[2024-06-21] MEDS: Atorvastatin Calcium 10 MG TAB PO SCH (21:08)
[2024-06-21] MEDS: Sodium Chloride 0.9% 1,000 ML IV SCH (21:12)
[2024-06-21 22:27] LABS: Troponin I 0.043 ng/mL (< 0.028)
[2024-06-22 04:06] LABS: #Basophils 0.03 10x3/uL (0.0-0.2); %Basophils 0.4 % (0.0-1.0); %Eosinophils 0.4 % (0.0-10.0); %Lymphocytes 9.2 % (21.0-51.0); %Monocytes 10.7 % (0.0-10.0); %Neutrophils 79.1 % (42.0-75.0); Hematocrit 38.7 % (42.0-52.0); Hemoglobin 12.7 g/dL (14.0-18.0); Mean Corpuscular HGB CONC 32.8 g/dL (32.0-36.0); Mean Corpuscular Hemoglobin 29.2 pg (27.0-31.0); Mean Platelet Volume 8.8 fL (7.4-10.4); Platelet Count 201 10x3/uL (130-400); Red Blood Cell (RBC) Count 4.35 mill/uL (4.70-6.10)
[2024-06-22 04:33] LABS: Anion Gap 14 mmol/L (10-20); BUN (Urea Nitrogen) 13 mg/dL (8.4-25.7); Calc. Creatinine Clearance 141 mL/min (70-130); Calcium 8.4 mg/dL (7.8-10.44); Carbon Dioxide 22 mmol/L (23-31); Chloride 108 mmol/L (98-107); Estimated GFR 99; Glucose 78 mg/dL (80-115); Potassium 3.2 mmol/L (3.5-5.1); Sodium 141 mmol/L (136-145)
[2024-06-22] MEDS: Gabapentin 300 MG CAP PO SCH (09:16)
[2024-06-22] MEDS: Hydrochlorothiazide 25 MG TAB PO SCH (09:17)
[2024-06-22] MEDS: Enoxaparin 40 MG (0.4 mL) SYRINGE SC SCH (09:17)
[2024-06-22] MEDS: Potassium Chloride 20 MEQ TAB PO SCH (09:17)
[2024-06-22] MEDS: traMADol HCl 50 MG TAB PO PRN (09:18)
[2024-06-22] MEDS: Lisinopril 20 MG TAB PO SCH (09:18)
[2024-06-22] MEDS: Pantoprazole DR 40 MG TAB PO SCH (09:18)
[2024-06-23 04:25] LABS: Anion Gap 13 mmol/L (10-20); BUN (Urea Nitrogen) 11 mg/dL (8.4-25.7); Calc. Creatinine Clearance 154 mL/min (70-130); Calcium 8.4 mg/dL (7.8-10.44); Carbon Dioxide 23 mmol/L (23-31); Chloride 102 mmol/L (98-107); Estimated GFR 102; Glucose 104 mg/dL (80-115); Magnesium 1.5 mg/dL (1.6-2.6); Potassium 3.4 mmol/L (3.5-5.1); Sodium 135 mmol/L (136-145)
[2024-06-23] MEDS: Magnesium 2 GM/50 ML(in water) 2 GM in Premix 1 BAG IVPB SCH (08:27)
[2024-06-23] MEDS: Potassium Chloride 20 MEQ TAB PO SCH (08:28)
[2024-06-23 12:51] VITALS: BP 153/79; TEMP 97.9
== END 2024-06-23 14:34 | disposition home or self-care (01) | DRG 923 ==
LOC: ERS 14:58 → 2SE 17:31
PROVIDERS: ADMIT Internal Medicine; ATTEND Internal Medicine
DX: T67.01XA Heatstroke and sunstroke, initial encounter (principal); I42.9 Cardiomyopathy, unspecified; E78.5 Hyperlipidemia, unspecified; I10 Essential (primary) hypertension; E66.9 Obesity, unspecified; I44.4 Left anterior fascicular block; I35.0 Nonrheumatic aortic (valve) stenosis; R07.89 Other chest pain; Z79.899 Other long term (current) drug therapy; Z79.51 Long term (current) use of inhaled steroids; Z79.2 Long term (current) use of antibiotics; Z90.49 Acquired absence of other specified parts of digestive tract; Z88.8 Allergy status to other drugs, medicaments and biological substances; Z87.11 Personal history of peptic ulcer disease; Z87.442 Personal history of urinary calculi; Z68.29 Body mass index [BMI] 29.0-29.9, adult
CPT/HCPCS: 36415; 70450; 71045; 80048; 80053; 80306; 80307; 81001; 82140; 82550; 83690; 83735; 84443; 84484; 85025; 93005; 93010; 93306; J1650; J3475; J7030